=== PATIENT | female | born 1990 | race African-American/Black ===

== ENCOUNTER 2017-03-26 11:10 | Emergency (ER) | payer SELFPAY ==
[~2017-03-26] VITALS: Ht 157.5 cm; Wt 47.6 kg
[2017-03-26 11:20] VITALS: BP 110/58
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
== END 2017-03-26 12:22 | disposition home or self-care (01) ==
LOC: ER 11:10
DX: S43.401A Unspecified sprain of right shoulder joint, initial encounter (principal); V43.52XA Car driver injured in collision with other type car in traffic accident, initial encounter; Y93.I9 Activity, other involving external motion; Y92.410 Unspecified street and highway as the place of occurrence of the external cause; Y99.8 Other external cause status
CPT/HCPCS: 99283